=== PATIENT | female | born 1955 | race Caucasian/White ===

== ENCOUNTER → 2016-07-07 | Outpatient (CLI) | payer BC | LOC: BHSO 13:56 | DX: F41.1 Generalized anxiety disorder (principal) ==

== ENCOUNTER → 2016-08-17 | Outpatient (CLI) | payer BC | LOC: BHSO 13:34 | DX: F31.73 Bipolar disorder, in partial remission, most recent episode manic (principal) ==

== ENCOUNTER → 2016-10-12 | Outpatient (CLI) | payer BC | LOC: BHSO 13:26 | DX: F31.73 Bipolar disorder, in partial remission, most recent episode manic (principal) ==

== ENCOUNTER → 2016-12-14 | Outpatient (CLI) | payer BC | LOC: BHSO 14:41 | DX: F31.74 Bipolar disorder, in full remission, most recent episode manic (principal) ==

== ENCOUNTER → 2017-03-15 | Outpatient (CLI) | payer BC | LOC: BHSO 14:59 | DX: F31.73 Bipolar disorder, in partial remission, most recent episode manic (principal) ==

== ENCOUNTER → 2017-08-25 | Outpatient (CLI) | payer BC ==
[2017-08-25 14:22] LABS: BASO % 0.9 % (0.0-2.0); EOS # 0.1 (0.0-0.7); EOS % 1.3 % (0-4.0); GRAN % 66.4 % (42.2-75.2); LYMPH # 1.2 (1.2-3.4); LYMPH % 25.8 % (20.0-51.0); MEAN CELL VOLUME 67 fl (80.0-100.0); MEAN CORPUSCULAR HGB CONC 24 g/dl (33.0-37.0); MONO # 0.2 (0.1-0.6); MONO % 5.4 % (1.7-9.3); PLATELET COUNT 259 K/mm3 (130-400); RED BLOOD COUNT 3.61 M/mm3 (4.10-5.30); REDCELL DISTRIBUTION WIDTH-CV 21.2 % (11.5-14.5)
[2017-08-25 14:28] LABS: ALBUMIN 3.8 gm/dL (3.5-5.0); BILIRUBIN,TOTAL 0.2 mg/dL (0.0-1.0); CALCIUM 8.7 mg/dL (8.4-10.2); CHOLESTEROL RISK RATIO 2.1; CREATININE, serum 0.58 mg/dL (0.52-1.25); POTASSIUM 4.2 mmol/L (3.4-5.0); TOTAL PROTEIN 6.6 gm/dL (6.4-8.2)
[2017-08-25 14:38] LABS: HEMATOCRIT 24.2 % (37.0-47.0); HEMOGLOBIN 5.8 g/dl (12.5-16.0); MEAN CORPUSCULAR HEMOGLOBIN 16 pg (27.0-31.0)
[2017-08-25 14:58] LABS: TSH w REFLEX 4.28 uIU/mL (0.465-4.680)
== END ==
LOC: COL.LAB 09:40
PROVIDERS: Family Medicine
DX: Z13.1 Encounter for screening for diabetes mellitus (principal); Z13.220 Encounter for screening for lipoid disorders; D64.9 Anemia, unspecified

== ENCOUNTER → 2017-08-31 | Outpatient (CLI) | payer BC ==
[2017-08-31 17:12] LABS: MEAN CELL VOLUME 67 fl (80.0-100.0); MEAN CORPUSCULAR HGB CONC 24 g/dl (33.0-37.0); PLATELET COUNT 458 K/mm3 (130-400); RED BLOOD COUNT 3.78 M/mm3 (4.10-5.30); REDCELL DISTRIBUTION WIDTH-CV 22.3 % (11.5-14.5)
[2017-08-31 17:13] LABS: IRON,SERUM 10 ug/dL (35-150)
[2017-08-31 17:23] LABS: TOTAL IRON BINDING CAPACITY 482 ug/dL (265-497)
[2017-08-31 17:50] LABS: FERRITIN 3 ng/mL (11-264)
[2017-08-31 17:53] LABS: HEMATOCRIT 25.3 % (37.0-47.0); MEAN CORPUSCULAR HEMOGLOBIN 16 pg (27.0-31.0)
[2017-08-31 18:16] LABS: HIV 1/2 Antibodies Non-Reactive; HIV-1p24 Antigen Non-Reactive
[2017-08-31 18:56] LABS: EOSINOPHIL 2 % (0-4); LYMPHOCYTE 14 % (20.0-51.0); NEUTROPHILS 81 % (42.0-75.2); PLATELET ESTIMATE NORMAL (NORMAL)
[2017-08-31 18:57] LABS: ANISOCYTOSIS 3+; HYPOCHROMIA 3+; MICROCYTOSIS 2+
[2017-09-01 01:05] LABS: FOLATE (FOLIC ACID) 4.4 ng/mL (7.0-31.4)
[2017-09-01 08:07] LABS: PATHOLOGY DIFF REVIEW OK
== END ==
LOC: COL.LAB 13:52
PROVIDERS: Family Medicine
DX: D64.9 Anemia, unspecified (principal); B37.0 Candidal stomatitis

== ENCOUNTER 2017-09-23 13:30 | Outpatient (RCR) | payer BC ==
[2017-09-19 15:16] VITALS: BP 128/61; PULSE 70; TEMP 98.5
[2017-09-20 13:47] VITALS: BP 121/54; PULSE 68; TEMP 98.5
[2017-09-21 14:00] VITALS: BP 122/61; PULSE 64; TEMP 98
[2017-09-22 10:11] VITALS: BP 120/52; PULSE 72; TEMP 98.3
[~2017-09-23] VITALS: Ht 154.9 cm; Wt 52.2 kg
[2017-09-23 13:05] VITALS: BP 137/56; PULSE 69; TEMP 98.9
[~2017-09-23 13:30] MED LIST: TYLENOL 500MG500 MG PO
[2017-09-23] MEDS ORDERED: CEPHALEXIN500 M1 PO (19:58)
[2017-09-23] MEDS ORDERED: DOXYCYCLINE 10100 MG PO (19:58)
== END 2017-09-23 14:18 | disposition home or self-care (01) ==
LOC: EUO 13:30
DX: D50.9 Iron deficiency anemia, unspecified (principal)
CPT/HCPCS: J2916

== ENCOUNTER 2017-09-23 19:36 | Emergency (ER) | payer BC ==
[~2017-09-23] VITALS: Ht 152.4 cm; Wt 51.8 kg
[2017-09-23 19:48] VITALS: BP 150/67; TEMP 99.1
[2017-09-23] MEDS ORDERED: CEPHALEXIN500 M1 PO (19:58)
[2017-09-23] MEDS ORDERED: DOXYCYCLINE 10100 MG PO (19:58)
[2017-09-23 20:05] VITALS: PULSE 68
== END 2017-09-23 20:04 | disposition home or self-care (01) ==
LOC: COL.ER 19:36
DX: L03.114 Cellulitis of left upper limb (principal)

== ENCOUNTER → 2017-12-06 | Outpatient (CLI) | payer BC ==
[~2017-12-06] MED LIST changes: +CEPHALEXIN500 M1 PO; +DOXYCYCLINE 10100 MG PO
== END ==
LOC: BHSO 13:41
DX: F31.11 Bipolar disorder, current episode manic without psychotic features, mild (principal)
CPT/HCPCS: G0463

== ENCOUNTER → 2017-12-22 | Outpatient (CLI) | payer BC ==
[2017-12-22 17:13] LABS: BASO # 0.1 (0.0-0.2); BASO % 0.8 % (0.0-2.0); EOS # 0.2 (0.0-0.7); EOS % 3.7 % (0-4.0); GRAN # 3.2 (1.4-6.5); GRAN % 53.5 % (42.2-75.2); LYMPH # 2.2 (1.2-3.4); LYMPH % 36.7 % (20.0-51.0); MEAN CELL VOLUME 75 fl (80.0-100.0); MEAN CORPUSCULAR HEMOGLOBIN 22 pg (27.0-31.0); MEAN CORPUSCULAR HGB CONC 30 g/dl (33.0-37.0); MONO # 0.3 (0.1-0.6); MONO % 5.1 % (1.7-9.3); PLATELET COUNT 198 K/mm3 (130-400); RED BLOOD COUNT 4.54 M/mm3 (4.10-5.30); REDCELL DISTRIBUTION WIDTH-CV 19.9 % (11.5-14.5)
[2017-12-22 17:14] LABS: HEMATOCRIT 33.9 % (37.0-47.0)
[2017-12-22 17:17] LABS: IRON,SERUM 29 ug/dL (35-150)
[2017-12-22 17:26] LABS: TOTAL IRON BINDING CAPACITY 393 ug/dL (265-497)
[2017-12-22 17:53] LABS: FERRITIN 8 ng/mL (11-264)
[2017-12-22 23:44] LABS: FOLATE (FOLIC ACID) 13.7 ng/mL (7.0-31.4)
== END ==
LOC: COL.LAB 16:11
PROVIDERS: Family Medicine
DX: E53.8 Deficiency of other specified B group vitamins (principal); D64.9 Anemia, unspecified; D50.9 Iron deficiency anemia, unspecified

== ENCOUNTER → 2018-04-24 | Outpatient (CLI) | payer BC, MEDICARE | LOC: BHSO 13:13 | DX: F31.81 Bipolar II disorder (principal) | CPT/HCPCS: G0463 ==

== ENCOUNTER → 2019-02-02 | Outpatient (CLI) | payer BC, MEDICARE | LOC: BHSO 10:47 | DX: F31.75 Bipolar disorder, in partial remission, most recent episode depressed (principal) | CPT/HCPCS: G0463 ==

== ENCOUNTER → 2019-04-04 | Outpatient (CLI) | payer BC, MEDICARE | LOC: BHSO 14:05 | DX: F31.77 Bipolar disorder, in partial remission, most recent episode mixed (principal) | CPT/HCPCS: G0463 ==

== ENCOUNTER → 2019-04-26 | Outpatient (CLI) | payer BC, MEDICARE | LOC: BHSO 14:03 | DX: F31.75 Bipolar disorder, in partial remission, most recent episode depressed (principal) | CPT/HCPCS: G0463 ==

== ENCOUNTER → 2019-07-26 | Outpatient (CLI) | payer BC, MEDICARE | LOC: BHSO 13:39 | DX: F31.75 Bipolar disorder, in partial remission, most recent episode depressed (principal) | CPT/HCPCS: G0463 ==

== ENCOUNTER → 2019-10-18 | Outpatient (CLI) | payer MEDICARE, BC | LOC: BHSO 14:20 | DX: F31.75 Bipolar disorder, in partial remission, most recent episode depressed (principal) | CPT/HCPCS: G0463 ==

== ENCOUNTER → 2020-01-22 | Outpatient (CLI) | payer MEDICARE, BC | LOC: BHSO 14:13 | DX: F31.75 Bipolar disorder, in partial remission, most recent episode depressed (principal) | CPT/HCPCS: G0463 ==